=== PATIENT | male | born 1970 | race African-American/Black ===

== ENCOUNTER → 2019-04-24 12:44 | Outpatient (CLI) | payer MEDICAID | END | disposition home or self-care (01) | LOC: D.RAD 12:44 | PROVIDERS: ATTEND Legal Medicine | DX: R13.10 Dysphagia, unspecified (principal) ==

== ENCOUNTER → 2019-05-19 12:23 | Outpatient (CLI) | payer MEDICAID | END | disposition home or self-care (01) | LOC: D.CT 12:23 | PROVIDERS: ATTEND Legal Medicine | DX: R25.1 Tremor, unspecified (principal) ==

== ENCOUNTER → 2020-09-16 13:30 | Outpatient (CLI) | payer MEDICAID | END | disposition home or self-care (01) | LOC: D.RAD 13:00 | PROVIDERS: ATTEND Legal Medicine | DX: R13.10 Dysphagia, unspecified (principal) ==